=== PATIENT | female | born 1940 | race Caucasian/White ===

== ENCOUNTER 2021-05-07 10:39 | Emergency (ER) | payer MEDICARE ==
[~2021-05-07] VITALS: Ht 154.9 cm; Wt 59.1 kg
[2021-05-07] MEDS ORDERED: IV NORMAL SALINE 1,000ML 1,000 ML IV SCH (10:45)
--- NOTE | 2021-05-07 10:49 | PHYS DOC ---
General Adult HPI: HPI: 80 yo F PMH osteoporosis, s/p zoledronic acid injection today, presents to the ED with , (patient consents to his/her/their knowledge and involvement in pts' medical care), complaints of weakness, loss of appetite and fatigue that started this morning before her injection, with soreness over the bottoms of her feet. Patient reports she is Covid vaccinated. This was her first injection today for osteoporosis and while sitting in the waiting room after the injection, complains of dizziness, shaking and concern for seizure-like activity. Patient reports she was conscious during these events. Reports no associated incontinence or oral bleeding/pain. Patient and both state that she has a history of seizure-like activity that she takes Valium as needed for. Did not take Valium prior to ED arrival. No associated syncope, chest pain, dyspnea, facial droop, weakness or neurologic deficits. Patient requests Covid test. Pt denies any blunt trauma to both feet or overuse injury. Has no current/active dizziness in the emergency department Review of Systems: Review of Systems: Constitutional: Denies fever or chills Eyes: Denies change in visual acuity HENT: Denies nasal congestion or sore throat Respiratory: Denies cough or shortness of breath Cardiovascular: Denies chest pain or edema GI: Denies abdominal pain, nausea, vomiting, bloody stools or diarrhea : Denies dysuria or hematuria Musculoskeletal: Denies back pain or cva ttp Integument: Denies rash or diaphoresis Neurologic: Denies headache, focal weakness or sensory changes Endocrine: Denies polyuria or polydipsia Lymphatic: Denies swollen glands Psychiatric: Denies depression or anxiety Current Medications: Current Meds: Current Medications Medications (Trade) Dose Ordered Sig/Karlene Start Time Stop Time Status Last Admin Dose Admin Sodium Chloride 1,000 ml @ 1,000 mls/hr Q1H 05/07/21 10:45 05/07/21 11:44 UNV Physical Exam: PE: Constitutional: Well developed, well nourished, no acute distress, non-toxic appearance. HENT: Normocephalic, atraumatic, is rapidly/voluntarily blinking on arrival- stops with rapid stimuli to the face Eyes: PERRLA, EOMI, conjunctiva normal, no discharge, no nystagmus Neck: Normal range of motion, supple, Cardiovascular: S1/2 present, regular rhythm Lungs & Thorax: Speaking in full sentences, bilateral equal chest rise, no tachypnea or increased work of breathing Abdomen: soft, no tenderness, Skin: Warm, dry, no erythema, no rash. [] Back: No tenderness, no CVA tenderness. [] Extremities: No tenderness, no cyanosis, no lower extremity swelling, equal DP/PT pulses, no plantar ecchymosis Neurologic: GCS15, CN2-12 intact Alert and oriented X 3, normal motor function, normal sensory function, no focal deficits noted. [] Psychologic: Affect normal, judgement normal, mood normal. [] EKG: EKG: Sinus rhythm 75 bpm, no axis deviation, first-degree AV block with IN interval 202, T wave inversion lead 3, no ST elevation or ST depression 1120 sinus rhythm 70 bpm, no axis deviation, normal intervals, no T wave inversion, no ST elevation or ST depression Radiology/Procedures: Radiology/Procedures: IMAGING REPORT Signed PATIENT: LINCOLN GRANDE ACCOUNT: [id number] : 1940 LOCATION: ER AGE: 80 SEX: F EXAM STATUS: REG ER ORD. PHYSICIAN: JOE ORO DO REASON: SYNCOPE PROCEDURE: PORTABLE CHEST 1V EXAM: XR CHEST 1V 05/07/2021 10:49 AM CLINICAL INDICATION: Syncope COMPARISON: None TECHNIQUE: AP upright view of the chest. FINDINGS: The heart is normal in size. Lungs are well-expanded. No consolidation, pleural effusion, or pneumothorax. 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 Surgical changes of right rotator cuff repair. Lower cervic al fusion hardware. IMPRESSION: No acute cardiopulmonary abnormality. Electronically signed by: Priscilla Gandhi MD (05/07/2021 11:28 AM) [id number] DICTATED AND SIGNED BY: PRISCILLA GANDHI MD DATE: 05/07/21 112 CC: PCP,CHI; JOE ORO DO ~MTH0 0 IMAGING REPORT Signed PATIENT: LINCOLN RGANDE ACCOUNT: [id number] : 1940 LOCATION: ER AGE: 80 SEX: F EXAM STATUS: REG ER ORD. PHYSICIAN: JOE ORO DO REASON: seizure, abnormla mvmts PROCEDURE: CT HEAD WO CONTRAST CT HEAD WITHOUT CONTRAST 05/07/2021 11:50 AM Indication: Reason: seizure, abnormla mvmts / Spl. Instructions: / History: Comparison: None Procedure: Multidetector CT imaging of the head was performed without the administration of contrast. Findings: There is no evidence of acute intracranial hemorrhage. There is no evidence of acute territorial infarction. Please note that CT is limited for evaluation of acute ischemia. No mass effect or midline shift is identified . The ventricles and basilar cisterns have an appropriate appearance. No abnormal extra-axial fluid collections are seen. No acute osseous changes are identified. Impression: No evidence of acute intracranial abnormality CT DOSING PQRS STATEMENT: One or more of the following individualized dose reduction techniques were utilized for this examination: 1. Automated exposure control 2. Adjustment of the mA and/or kV according to patient size 3. Use of iterative reconstruction technique Electronically signed by: Rogerio Armijo MD (05/07/2021 12:03 PM) [id number] DICTATED AND SIGNED BY: ROGERIO ARMIJO MD DATE: 05/07/21 1202 CC: PCP,NO; JOE ORO DO ~MTH0 0 Heart Score: C/O Chest Pain: No Risk Factors: Risk Factors: DM, Current or recent (<one month) smoker, HTN, HLP, family history of CAD, obesity. Risk Scores: Score 0 - 3: 2.5% MACE over next 6 weeks - Discharge Home Score 4 - 6: 20.3% MACE over next 6 weeks - Admit for Clinical Observation Score 7 - 10: 72.7% MACE over next 6 weeks - Early Invasive Strategies Course & Med Decision Making: Course & Med Decision Making Pertinent Labs and Imaging studies reviewed. (See chart for details) Concern for weakness and fatigue which could be a medication side effect versus viral infection, Covid test pending although low suspicion given sx onset and medication administration. Labs unremarkable except for renal insufficiency, no prior for baseline. Patient with no leukopenia. CT of the head with no acute process. Normal chest x-ray. Patient with no associated chest pain or dyspnea. On reevaluation patient with no recurrent seizure-like activity. Is resting comfortably, HD stable. No UTI. Sxs have resolved. Will discharge home with strict ED return precautions were given for confusion, neurologic deficits, chest pain, dyspnea or syncope. Encouraged urgent outpatient follow-up with PMD and nephrology for renal insufficiency. Life-threatening processes were considered but are low suspicion at this time, given history, physical exam and ED workup. Pt was educated on all prescription medications and adverse effects. All patient's questions were answered and pt was stable at time of discharge. Life/limb-threatening differential includes but is not limited to, cerebrovascular accident, cerebellar stroke, acute coronary syndrome, carbon monoxide poisoning or other toxidrome, syncope differential including cardiac arrhythmia/PE/aortic aneurysm or dissection/ACS, [place] syndrome, thyroid disease, infection, central and peripheral vertigo, intracranial hemorrhage, vertebrobasilar insufficiency, heat stroke, electrolyte disorder, rheumatologic or autoimmune disorder Life/limb-threatening differential includes but is not limited to, cerebrovascular accident, cerebellar stroke, acute coronary syndrome, carbon monoxide poisoning or other toxidrome, syncope differential including cardiac arrhythmia/PE/aortic aneurysm or dissection/ACS, [place] syndrome, thyroid disease, infection, central and peripheral vertigo, intracranial hemorrhage, vertebrobasilar insufficiency, heat stroke, electrolyte disorder, rheumatologic or autoimmune disorder I have spoken with the patient and/or caregivers. I explained the patient's condition, diagnoses and treatment plan based on the information available to me at this time. I have answered the patient and/or caregiver's questions and addressed any concerns. The patient and/or caregivers have a good understanding of patient's diagnosis, condition and treatment plan as can be expected at this point. Vital signs have been stable. Patient's condition is stable and appropriate for discharge from the emergency department. Patient will pursue further outpatient evaluation with primary care physician or other designated or consulting physician as outlined in the discharge instructions. The patient and/or caregivers are agreeable to this plan of care and follow-up instructions have been explained in detail. The patient and/or caregivers have received these instructions in written form and have expressed an understanding of the discharge instructions. The patient and/or caregivers are aware that any significant change of condition or worsening of symptoms should prompt immediate return to this or the closest emergency department or call to 911. Andra Disclaimer: Andra Disclaimer: This electronic medical record was generated, in whole or in part, using a voice recognition dictation system. Departure Departure: Impression: Primary Impression: Person under investigation for COVID-19 Additional Impressions: Weakness Renal insufficiency Disposition: 01 HOME / SELF CARE / HOMELESS Condition: STABLE Referrals: NADIRA NEVAREZ MD Follow up with your pcp in 1-[address] [facility] [phone] OR [facility]-Dr. Nevarez [phone] Patient Instructions: Kidney Failure, Weakness Additional Instructions: FOLLOW UP WITH NEPHROLOGY: FOR DEFINITIVE MANAGEMENT of kidney failure [facility] [place] [address] [place] [place] [id number] Return to ED immediately if your oxygen level drops below 90% (purchase a pulse oximetry at a medical supply store), difficulties breathing including rapid breathing or increased work of breathing (skin sucking under ribs), chest pain or stroke-like symptoms (facial droop, speech changes, arm/leg weakness). EMERGENCY DEPARTMENT GENERAL DISCHARGE INSTRUCTIONS Thank you for coming to [facility] (ED) today and trusting us with you care. We trust that you had a positivie experience in our Emergency Department. If you wish to speak to the department management, you may call the director at [phone]. YOUR FOLLOW UP INSTRUCTIONS ARE FOLLOWS: 1. Do you have a private Doctor? If you do not have a private doctor, please ask for a resource list of physicians or clinics that may be able to assist you with follow up care. 2. The Emergency Physician has interpreted your x-rays. The X-Ray specialist will also review them. If there is a change in the findings, you will be notified in 48 hours when at all possible. 3. A lab test or culture has been done, your results will be reviewed and you will be notified if you need a change in treatment. ADDITIONAL INSTRUCTIONS AND INFORMATION: 1. Your care today has been supervised by a physician who is specially trained in emergency care. Many problems require more than one evaluation for a complete diagnosis and treatment. We recommend that you schedule your follow up appointment as recommended to ensure complete treatment of you illness or injury. If you are unable to obtain follow up care and continue to have a problem, or if your condition worsens, we recommend that you return to the ED. 2. We are not able to safely determine your condition over the phone nor are we able to give sound medical advice over the phone. For these safety reasons, if you call for medical advice we will ask you to come to the ED for further evaluation. 3. If you have any questions regarding these discharge instructions please call the ED at [phone]. SAFETY INFORMATION: In the interest of safety, wellness, and injury prevention; we encourage you to wear your sealbelt, if you smoke; quite smoking, and we encourage family to use a protective helmet for bicycling and other sporting events that present an increased risk for head injury. IF YOUR SYMPTOMS WORSEN OR NEW SYMPTOMS DEVELOP, OR YOU HAVE CONCERNS ABOUT YOUR CONDITION; OR IF YOUR CONDITION WORSENS WHILE YOU ARE WAITING FOR YOUR FOLLOW UP APPOINTME NT; EITHER CONTACT YOUR PRIMARY CARE DOCTOR, THE PHYSICIAN WHOSE NAME AND NUMBER YOU WERE GIVEN, OR RETURN TO THE ED IMMEDIATELY. JOE SAENZ DO May 07, 2021 10:49
[2021-05-07 11:29] VITALS: BP 121/54
--- NOTE | 2021-05-07 11:31 | RAD ---
EXAM: XR CHEST 1V 05/07/2021 10:49 AM CLINICAL INDICATION: Syncope COMPARISON: None TECHNIQUE: AP upright view of the chest. FINDINGS: The heart is normal in size. Lungs are well-expanded. No consolidation, pleural effusion, or pneumothorax. 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 Surgical changes of right rotator cuff repair. Lower cervical fusion hardware. IMPRESSION: No acute cardiopulmonary abnormality. Electronically signed by: Priscilla Gandhi MD (05/07/2021 11:28 AM) [id number]
[2021-05-07 11:34] LABS: BASO # 0.1 x10^3/uL (0.0-0.2); BASO % 1 % (0-3); EOS # 0.2 x10^3/uL (0.0-0.7); EOS % 2 % (0-3); HEMATOCRIT 36.9 % (36.0-47.0); HEMOGLOBIN 12.3 g/dL (12.0-15.5); LYMPH # 1.2 x10^3/uL (1.0-4.8); LYMPH % 13 % (24-48); MEAN CORPUSCULAR HEMOGLOBIN 32 pg (25-35); MEAN CORPUSCULAR HGB CONC 33 g/dL (31-37); MEAN CORPUSCULAR VOLUME 97 fL (79-100); MONO # 0.9 x10^3/uL (0.0-1.1); MONO % 10 % (0-9); NEUT # 6.4 x10^3uL (1.8-7.7); NEUT % 74 % (31-73); PLATELET COUNT 270 x10^3/uL (140-400); RED BLOOD COUNT 3.79 x10^6/uL (3.50-5.40); WHITE BLOOD COUNT 8.7 x10^3/uL (4.0-11.0)
[2021-05-07 11:43] LABS: CALCIUM 9.6 mg/dL (8.5-10.1); CREATININE 1.9 mg/dL (0.6-1.0); GFR 25.5; POTASSIUM 3.8 mmol/L (3.5-5.1)
[2021-05-07 11:58] LABS: ALBUMIN 3.5 g/dL (3.4-5.0); ALBUMIN/GLOBULIN RATIO 0.8 (1.0-1.7); MAGNESIUM 1.9 mg/dL (1.8-2.4); TOTAL BILIRUBIN 0.8 mg/dL (0.2-1.0); TOTAL PROTEIN 7.9 g/dL (6.4-8.2)
--- NOTE | 2021-05-07 12:05 | RAD ---
CT HEAD WITHOUT CONTRAST 05/07/2021 11:50 AM Indication: Reason: seizure, abnormla mvmts / Spl. Instructions: / History: Comparison: None Procedure: Multidetector CT imaging of the head was performed without the administration of contrast. Findings: There is no evidence of acute intracranial hemorrhage. There is no evidence of acute territ orial infarction. Please note that CT is limited for evaluation of acute ischemia. No mass effect or midline shift is identified . The ventricles and basilar cisterns have an appropriate appearance. No abnormal extra-axial fluid collections are seen. No acute osseous changes are identified. Impression: No evidence of acute intracranial abnormality CT DOSING PQRS STATEMENT: One or more of the following individualized dose reduction techniques were utilized for this examinat ion: 1. Automated exposure control 2. Adjustment of the mA and/or kV according to patient size 3. Use of iterative reconstruction technique Electronically signed by: Rogerio Villeda MD (05/07/2021 12:03 PM) [id number]
[2021-05-07 14:25] LABS: AMPHETAMINE/METHAMPHETAMINE NEG (NEG); BARBITURATES NEG (NEG); BENZODIAZEPINES NEG (NEG); CANNABINOIDS NEG (NEG); COCAINE NEG (NEG); COLOR,URINE YELLOW; METHADONE NEG (NEG); OPIATES NEG (NEG); PHENCYCLIDINE NEG (NEG)
[2021-05-07 14:26] LABS: BACTERIA,URINE FEW /HPF (0-FEW); BILIRUBIN,URINE NEG (NEG); CLARITY,URINE HAZY; GLUCOSE,URINE NEG (NEG); NITRITE,URINE NEG (NEG); SQUAMOUS EPITHELIAL CELL,UR OCC /LPF; UROBILINOGEN,URINE 0.2 mg/dL (0.2 mg/dL)
[2021-05-07 14:27] LABS: GRANULAR CASTS,URINE OCC /HPF
--- NOTE | 2021-05-07 19:34 | EKG ---
[address] [address] Test Date: 2021-05-07 Test Time: 10:42:41 Pat Name: LINCOLN GRANDE Department: Room: Gender: F Automation Tester: SHELIA : 1940 Requested By: JOE ORO Order Number: [id number] Reading MD: Measurements Intervals [place] Rate: 75 P: 26 VT: 202 QRS: -2 QRSD: 70 T: 0 QT: 374 QTc: 420 Interpretive Statements SINUS RHYTHM LEFTWARD AXIS NO SPECIFIC ECG ABNORMALITIES RI6.02 No previous ECG available for comparison
--- NOTE | 2021-05-07 19:37 | EKG ---
[address] [address] Test Date: 2021-05-07 Test Time: 11:20:36 Pat Name: LINCOLN GRANDE Department: Room: Gender: F [employer]: SHELIA : 1940 Requested By: JOE ORO Order Number: [id number] Reading MD: Measurements Intervals [place] Rate: 70 P: 53 CO: 176 QRS: 48 QRSD: 70 T: 27 QT: 388 QTc: 422 Interpretive Statements SINUS RHYTHM NORMAL ECG RI6.02 No previous ECG available for comparison
--- NOTE | 2021-05-08 10:05 | NUR ---
IP: Patient notified of negative COVID19 test result. Verbalized understanding.
== END 2021-05-07 15:52 | disposition home or self-care (01) ==
LOC: ER 10:39
DX: N28.9 Disorder of kidney and ureter, unspecified (principal); R53.1 Weakness; R42 Dizziness and giddiness; Z20.822 Contact with and (suspected) exposure to COVID-19
CPT/HCPCS: 36415; 70450; 71045; 80053; 80307; 81001; 82550; 83690; 83735; 83880; 84484; 85025; 93005; 96361; 96374; 99285; C9803; J2060; J7030; U0003